=== PATIENT | male | born 1980 | race Caucasian/White ===

== ENCOUNTER 2019-04-20 04:57 | Emergency (ER) | payer MEDICAID ==
[~2019-04-20] VITALS: Ht 170.2 cm; Wt 84.0 kg
[2019-04-20] MEDS ORDERED: IBUP-1986 PO (05:13)
[2019-04-20] MEDS ORDERED: AMOX500C2 PO (05:13)
[2019-04-20 05:27] VITALS: BP 147/93
== END 2019-04-20 05:30 | disposition home or self-care (01) ==
LOC: ER 04:57
DX: K08.89 Other specified disorders of teeth and supporting structures (principal); F15.90 Other stimulant use, unspecified, uncomplicated
CPT/HCPCS: 99283